=== PATIENT | male | born 1955 | race Caucasian/White ===

== ENCOUNTER 2017-02-11 10:10 | Emergency (ER) | payer BC ==
[2017-02-11 11:04] VITALS: BP 130/83
--- NOTE | 2017-02-11 11:04 | UC ---
Back Pain HPI - HPI Summary HPI Summary: 61 year old male presents with complains of bilateral back spasms L > R. - History of Current Complaint Chief Complaint: UCBackPain Stated Complaint: BACK PAIN Time Seen by Provider: 02/11/17 11:03 - Allergies/Home Medications Allergies/Adverse Reactions: Allergies Allergy/AdvReac Type Severity Reaction Status Date / Time Levofloxacin [From Levaquin] Allergy Severe muscle Verified 10/05/12 10:45 tension PMH/Surg Hx/FS Hx/Imm Hx - Surgical History Surgical History: Yes Surgery Procedure, Year, and Place: Two Sinus surgeries Dr. Gutierrez - Social History Alcohol Use: Rare Substance Use Type: None Smoking Status (MU): Never Smoked Tobacco Review of Systems Constitutional: Negative Skin: Negative Eyes: Negative ENT: Negative Respiratory: Negative Cardiovascular: Negative Gastrointestinal: Negative Genitourinary: Negative Motor: Negative Neurovascular: Negative Musculoskeletal: Myalgia, Other: - BILATERAL LOWER BACK SPASM Neurological: Negative Psychological: Negative All Other Systems Reviewed And Are Negative: Yes Physical Exam Triage Information Reviewed: Yes Vital Signs: Initial Vital Signs Temp 36.6 C 02/11/17 11:00 Pulse 76 02/11/17 11:00 Resp 20 02/11/17 11:00 Pulse Ox 100 02/11/17 11:00 Eye Exam: Normal ENT Exam: Normal Dental Exam: Normal Neck exam: Normal Neck: Positive: 1 Respiratory Exam: Normal Cardiovascular Exam: Normal Abdominal Exam: Normal Musculoskeletal Exam: Normal Musculoskeletal: Positive: Strength Limited @, ROM Limited @, Other: - BILATERAL LOWER BACK SPASM Neurological Exam: Normal Psychological Exam: Normal Skin Exam: Normal Back Pain Course/Dx - Differential Dx/Diagnosis Provider Diagnoses: LOWER BACK SPASM Discharge - Discharge Plan Condition: Stable Disposition: HOME Prescriptions: Methocarbamol TAB* [Robaxin 500 MG TAB*] 500 mg PO TID PRN #30 tab PRN Reason: Spasms - Back Methylprednisolone [Medrol Dosepak 4 MG*] 4 mg PO .SEE EVA INSTRUCTION #21 tab Patient Education Materials: Acute Low Back Pain (ED), Muscle Spasm (ED) Referrals: Christopher Valadez MD [Primary Care Provider] -
== END 2017-02-11 11:18 | disposition home or self-care (01) ==
LOC: UCEAST 10:10
DX: M62.830 Muscle spasm of back (principal); Z88.3 Allergy status to other anti-infective agents
CPT/HCPCS: 99212; G0463

== ENCOUNTER 2017-10-31 17:50 | Emergency (ER) | payer BC ==
[2017-10-31 18:04] VITALS: BP 141/89
--- NOTE | 2017-10-31 18:24 | UC ---
Throat Pain/Nasal Connor HPI - HPI Summary HPI Summary: 61 yo WM presents with sinus pain/pressure/congestion for the last 6 days. He has been using a netti pot and doing nasal rinses with periodic relief, but the congestion returns. Over the last day has develop a sore throat and has felt feverish at times. Denies SOB, chest pain, abdominal pain, n/v/d/c. He was an an antibiotic about a month ago for bronchitis. - History of Current Complaint Chief Complaint: UCRespiratory Stated Complaint: SINUS CONGESTION Time Seen by Provider: 10/31/17 18:23 Hx Obtained From: Patient Severity: Mild Pain Intensity: 2 Pain Scale Used: 0-10 Numeric - Allergies/Home Medications Allergies/Adverse Reactions: Allergies Allergy/AdvReac Type Severity Reaction Status Date / Time levofloxacin [From Levaquin] Allergy Muscle Ache Verified 10/31/17 18:04 Home Medications: Home Medications Albuterol HFA INHALER* [Ventolin HFA Inhaler*] 1 puff INH Q4H PRN 10/31/17 [ History Confirmed 10/31/17] Fluticasone-Salmeterol 100-50* [Advair Diskus 100-50*] 1 puff INH BID 10/31/17 [ History Confirmed 10/31/17] PMH/Surg Hx/FS Hx/Imm Hx - Additional Past Medical History Additional PMH: Allergies Previously Healthy: Yes Respiratory History: Asthma - Surgical History Surgical History: Yes Surgery Procedure, Year, and Place: Two Sinus surgeries Dr. Gutierrez - Family History Known Family History: Positive: Unknown - Social History Occupation: Employed Full-time Lives: With Family Alcohol Use: Occasionally Substance Use Type: None Smoking Status (MU): Never Smoked Tobacco Review of Systems Constitutional: Negative Skin: Negative Eyes: Negative ENT: Sore Throat, Sinus Congestion, Sinus Pain/Tenderness Respiratory: Negative Cardiovascular: Negative Gastrointestinal: Negative Neurovascular: Negative Musculoskeletal: Negative Neurological: Negative Psychological: Negative All Other Systems Reviewed And Are Negative: Yes Physical Exam - Summary Physical Exam Summary: GENERAL: NAD. WDWN HEENT: NC/AT. Conjunctiva clear without inflammation or discharge. TMs intact , no bulging, erythema, or edema. Nasal mucosa mildly swollen and erythematous with clear discharge. TTP maxillary and frontal sinus. Posterior oropharynx without exudates, erythema, or tonsillar enlargement. Uvula midline. NECK: Supple without lymphadenopathy CHEST: CTAB. No r/r/w. No accessory muscle use. Breathing comfortably and in no distress. CV: RRR. Without m/r/g. Pulses intact. SKIN: No rash or erythema noted. NEURO: Alert. CN II-XII grossly intact. PSYCH: Age appropriate behavior. Triage Information Reviewed: Yes Vital Signs: Initial Vital Signs Temp 98.1 F 10/31/17 17:56 Pulse 76 10/31/17 17:56 Resp 18 10/31/17 17:56 BP 141/89 10/31/17 17:56 Pulse Ox 100 10/31/17 17:56 Throat Pain/Nasal Course/Dx - Course Course Of Treatment: Sinusitis. Given his recent antibiotic usage, will rx for augmentin. - Differential Dx/Diagnosis Provider Diagnoses: Sinusitis Discharge - Sign-Out/Discharge Documenting (check all that apply): Discharge - Discharge Plan Condition: Stable Disposition: HOME Prescriptions: Amoxicillin/Clavulanate TAB* [Augmentin TAB 875*] 875 mg PO BID #20 tab Patient Education Materials: Sinusitis (ED) Referrals: Nora OLIVARES,Main Banegas [Primary Care Provider] - Additional Instructions: If you develop a fever, shortness of breath, chest pain, new or worsening symptoms - please call your PCP or go to the ED. Your blood pressure was high at todays visit. Please see your primary provider within 4 weeks for recheck and re-evaluation. - Billing Disposition and Condition Condition: STABLE Disposition: HOME
== END 2017-10-31 18:35 | disposition home or self-care (01) ==
LOC: UCEAST 17:50
DX: J32.9 Chronic sinusitis, unspecified (principal); J45.909 Unspecified asthma, uncomplicated; Z88.1 Allergy status to other antibiotic agents
CPT/HCPCS: 99211; G0463

== ENCOUNTER 2019-03-10 09:30 | Emergency (ER) | payer BC ==
[2019-03-10 09:36] VITALS: BP 146/75
[2019-03-10] MEDS ORDERED: Albuterol/Ipratropium NEB.SOL* Albuterol 2.5 MG/Ipratropium 0.5 MG 3 ML INH ONE (10:28)
--- NOTE | 2019-03-10 10:38 | UC ---
Respiratory Complaint HPI - HPI Summary HPI Summary: 63-year-old male presents with 2 week history of URI symptoms. States initially started out as a "cold" including nasal congestion, runny nose, mild sinus pain, bilateral ear fullness, and sore throat. Symptoms had started to improve after about 5 or 6 days but over the past week have progressively worsened. Patient states he now has some chest tightness, mild shortness of breath, and a nonproductive cough. Symptoms are associated with a subjective fever, chills, and fatigue. Patient reports a history of reactive airway disease. Has been using his Advair as directed. States he has needed to use his albuterol inhaler about every 6 hours. - History of Current Complaint Chief Complaint: UCRespiratory Stated Complaint: URI Time Seen by Provider: 03/10/19 10:12 Hx Obtained From: Patient Pain Intensity: 4 - Allergies/Home Medications Allergies/Adverse Reactions: Allergies Allergy/AdvReac Type Severity Reaction Status Date / Time levofloxacin [From Levaquin] Allergy Muscle Ache Verified 03/10/19 09:37 PMH/Surg Hx/FS Hx/Imm Hx Respiratory History: Other - Reactive airway disease Cancer History: Other - ADHD - Surgical History Surgical History: Yes Surgery Procedure, Year, and Place: Two Sinus surgeries Dr. Gutierrez. left thumb surgery - Family History Known Family History: Positive: Non-Contributory - Social History Occupation: Employed Full-time Lives: With Family Alcohol Use: Rare Substance Use Type: None Smoking Status (MU): Never Smoked Tobacco Review of Systems All Other Systems Reviewed And Are Negative: Yes Constitutional: Positive: Fever - Subjective, Chills, Fatigue Skin: Negative: Rash Eyes: Negative: Drainage, Eye Redness ENT: Positive: Sore Throat, Ear Ache, Nasal Discharge, Sinus Congestion, Sinus Pain/Tenderness Respiratory: Positive: Shortness Of Breath, Cough Cardiovascular: Negative: Palpitations, Chest Pain Gastrointestinal: Negative: Abdominal Pain, Vomiting, Diarrhea, Nausea Genitourinary: Positive: Negative Musculoskeletal: Positive: Negative Neurological: Positive: Negative Is Patient Immunocompromised?: No Physical Exam - Summary Physical Exam Summary: GENERAL APPEARANCE: Well developed, well nourished, alert and cooperative, and appears to be in no acute distress. EYES: Conjunctiva clear. No drainage. PERRL, EOM intact. Vision is grossly intact. EARS: External auditory canals and tympanic membranes clear, hearing grossly intact. NOSE: Mild-moderate nasal congestion. No nasal discharge. Maxillary sinus tenderness. THROAT: Pharyngeal cobblestoningl. No tonsilar inflammation, swelling, exudate, or lesions. Uvula midline. NECK: Neck supple, non-tender without lymphadenopathy. CARDIAC: Normal S1 and S2. No S3, S4 or murmurs. Rhythm is regular. There is no peripheral edema, cyanosis or pallor. Extremities are warm and well perfused. Capillary refill is less than 2 seconds. Peripheral pulses intact. LUNGS: Scattered bilateral wheezes. Nonproductive, bronchospastic cough. ABDOMEN: Positive bowel sounds. Soft, nondistended, nontender. No guarding or rebound. No masses or hepatosplenomegally. MUSKULOSKELETAL: ROM intact to all extremities. No joint erythema or tenderness. Normal muscular development. Normal gait. SKIN: Skin normal color, texture and turgor with no lesions or eruptions. Triage Information Reviewed: Yes Vital Signs: Initial Vital Signs Temp 98.6 F 03/10/19 09:34 Pulse 77 03/10/19 09:34 Resp 16 03/10/19 09:34 BP 146/75 03/10/19 09:34 Pulse Ox 99 03/10/19 09:34 Vital Signs Reviewed: Yes Respiratory Course/Dx - Course Course Of Treatment: 63-year-old male presents with 2 week history of URI symptoms. States initially started out as a "cold" including nasal congestion, runny nose, mild sinus pain, bilateral ear fullness, and sore throat. Symptoms had started to improve after about 5 or 6 days but over the past week have progressively worsened. Patient states he now has some chest tightness, mild shortness of breath, and a nonproductive cough. Symptoms are associated with a subjective fever, chills, and fatigue. Patient reports a history of reactive airway disease. Has been using his Advair as directed. States he has needed to use his albuterol inhaler about every 6 hours. Afebrile. Hypertensive his vital signs stable. Patient had mild to moderate nasal congestion, maxillary sinus tenderness, pharyngeal cobblestoning without tonsillar swelling or exudate, no cervical lymphadenopathy, scattered bilateral wheezes, and a nonproductive, bronchospastic cough. Patient was given a DuoNeb treatment with improvement in his chest tightness and cough. Patient likely has a upper respiratory infection with exacerbation of his reactive airway disease. Considering the duration and worsening of his symptoms have a concern for a secondary bacterial infection therefore we'll place him on antibiotics. He is to start doxycycline 100 mg twice a day 10 days. We will put him on prednisone 50 mg daily 5 days for the exacerbation of his reactive airway disease. He is to continue symptomatic treatment for the URI. He is to follow-up with his primary care provider in 3-5 days if symptoms are not improving. Anticipatory guidance and warning symptoms were reviewed with the patient. Verbalizes understanding and agrees with plan of care. - Differential Dx/Diagnosis Differential Diagnosis/HQI/PQRI: Bronchitis, Lower Resp Infection, Sinusitis Provider Diagnosis: Upper respiratory infection with cough and congestion, Reactive airway disease with acute exacerbation Discharge - Sign-Out/Discharge Documenting (check all that apply): Patient Departure All imaging exams completed and their final reports reviewed: No Studies - Discharge Plan Condition: Stable [place] [place]: Doxycycline Hyclate 100 mg PO BID #20 tablet predniSONE TAB* [Deltasone TAB*] 50 mg PO DAILY #5 tab Patient Education Materials: Upper Respiratory Infection (ED), Wheezing (ED) Referrals: Estevan Reno DO [Primary Care Provider] - 3 Days Additional Instructions: Your history and exam are consistent with an upper respiratory infection with exacerbation of your reactive airway disease. Considering the duration and worsening of your symptoms we will start you on an antibiotic to treat the infection. Start doxycycline 100 mg twice a day for 10 days. Do not drink milk, eat milk products, or takes supplements containing calcium for at least 2 hours before after taking this medication as the calcium can affect the absorption. This antibiotic will also make you more sensitive to the sunlight therefore it is recommended that you try to avoid sun exposure while taking. If you must be outdoors take appropriate precautions including sunscreen, long sleeves, and hat. To help with the exacerbation of your reactive airway disease we will put you on a short course of steroids. Take prednisone 50 mg daily for 5 days. Continue using your Advair and albuterol as directed. Drink plenty of fluids to avoid dehydration especially if you are running any fever. Use a saline rinse kit such as Neti Pot or NeilMed at least twice a day to help thin secretions and promote drainage of the sinuses. Continue using an over the counter decongestant such as Sudafed to help with the congestion. Take over the counter acetaminophen (Tylenol) or ibuprofen (Advil, Motrin) according to directions as needed for pain or fever. Use salt water gargles several times a day if you have a sore throat. Follow up with your primary care provider in 3-5 days if no improvement in symptoms. Seek immediate medical attention in the emergency room if you have fever greater than 100.5 F despite taking acetaminophen or ibuprofen, have chest pain , difficulty breathing, are unable to swallow, or have any worsening of symptoms. - Billing Disposition and Condition Condition: STABLE Disposition: Psychiatric Facility [facility]
== END 2019-03-10 11:02 | disposition home or self-care (01) ==
LOC: UCEAST 09:30
DX: J06.9 Acute upper respiratory infection, unspecified (principal); J45.901 Unspecified asthma with (acute) exacerbation; R05 Cough; R09.89 Other specified symptoms and signs involving the circulatory and respiratory systems; Z88.1 Allergy status to other antibiotic agents
CPT/HCPCS: 99212; A9270-GY; G0463